=== PATIENT | female | born 1960 | race Caucasian/White ===

== ENCOUNTER → 2017-06-08 | Outpatient (CLI) | payer BC ==
[~2017-06-08] MED LIST: ADVIL COLD & S1 EAC1 PO; ASPIR 8181 MG PO; ASPIRIN EC81 M1 PO; BIRTH CONTROL PO; CLARITIN10 MG; CLIMARA 0.061 PATCH TD; ESTROGEL50 GM; FLOMAX0.4 MG PO; HYDROCODONE PO; IBUPROFEN 600600 M1 PO; IBUPROFEN 800800 M1; IBUPROFEN 800800 M1 PO; IBUPROFEN 800800 MG PO; MOBIC7.5 MG PO; MOM PO; NAPROSYN500 MG; PERCOCET 5-3251 EACH PO; PHENERGAN 25 MG25 M1 PO; PREVACID15 MG PO; PROTONIX40 M2 PO; RESTORIL15 MG PO; SIMETHICON CHEW80 M1 PO; TYLENOL EXTRA500 MG PO; ULTRAM 50MG TAB50 MG PO; VALIUM2 MG PO
== END ==
LOC: RAD 14:52
DX: Z12.31 Encounter for screening mammogram for malignant neoplasm of breast (principal)

== ENCOUNTER → 2018-09-05 | Outpatient (CLI) | payer OTHER | LOC: RAD 11:17 | DX: Z12.31 Encounter for screening mammogram for malignant neoplasm of breast (principal) ==

== ENCOUNTER → 2018-10-19 | Outpatient (CLI) | payer OTHER | LOC: NUC 09:38 | DX: M81.0 Age-related osteoporosis without current pathological fracture (principal); E28.39 Other primary ovarian failure ==

== ENCOUNTER → 2020-01-24 | Outpatient (CLI) | payer OTHER | LOC: RAD 08:59 | PROVIDERS: ATTEND Obstetrics & Gynecology Obstetrics | DX: Z12.31 Encounter for screening mammogram for malignant neoplasm of breast (principal) ==

== ENCOUNTER → 2020-02-29 | Outpatient (CLI) | payer OTHER | LOC: ULTRA 08:18 | PROVIDERS: ATTEND Family Medicine | DX: N28.1 Cyst of kidney, acquired (principal); R16.1 Splenomegaly, not elsewhere classified ==

== ENCOUNTER → 2021-02-06 | Outpatient (CLI) | payer OTHER | LOC: BC 09:24 | PROVIDERS: ATTEND Obstetrics & Gynecology Obstetrics | DX: Z12.31 Encounter for screening mammogram for malignant neoplasm of breast (principal) ==

== ENCOUNTER → 2021-04-09 | Outpatient (CLI) | payer OTHER | LOC: RAD 10:59 | PROVIDERS: ATTEND Family Medicine | DX: M47.816 Spondylosis without myelopathy or radiculopathy, lumbar region (principal); M41.86 Other forms of scoliosis, lumbar region; M16.0 Bilateral primary osteoarthritis of hip; M25.751 Osteophyte, right hip; G89.29 Other chronic pain; M54.41 Lumbago with sciatica, right side ==